=== PATIENT | female | born 1980 | race American Indian/Alaskan Native ===

== ENCOUNTER 2017-01-09 06:15 | Day surgery (SDC) | payer MEDICAID ==
[2017-01-09] MEDS ORDERED: WATER FOR IRRIG STERILE IR ONE (07:27)
--- NOTE | 2017-01-09 07:42 | Anesthesia Consultation ---
Anesthesia Consult and Med Hx Date of service: 01/09/17 - Airway Anesthetic Teeth Evaluation: Good ROM Head & Neck: Adequate Mental/Hyoid Distance: Adequate Mallampati Class: Class II Intubation Access Assessment: Probably Good - Pre-Operative Health Status ASA Pre-Surgery Classification: ASA3 Proposed Anesthetic Plan: MAC - Pulmonary Hx Smoking: Yes (Quit in high school) Hx Sleep Apnea: Yes - Cardiovascular System Hx Hypertension: Yes - Gastrointestinal Hx Gastroesophageal Reflux Disease: Yes - Other Systems Hx Obesity: Yes
--- NOTE | 2017-01-09 07:42 | Anesthesia Day of Surgery ---
Anesthesia Day of Surgery - Day of Surgery Patient Examined: Yes Patient H&P Reviewed: Yes Patient is NPO: Yes
[2017-01-09] MEDS ORDERED: DIPRIVAN 10 MG/ML IV ONE ×2 (07:58)
[2017-01-09] MEDS ORDERED: NACL 0.9% 1000 ML 1,000 ML IV SCH (08:00)
--- NOTE | 2017-01-09 08:04 | Discharge Summary ---
Providers - Providers Date of discharge: 01/09/17 Attending physician: SARAVANAN ASKEW Hospitalization Condition: Good Procedures: egd Disposition: DC- TO HOME OR SELFCARE Core Measure Documentation - Palliative Care Palliative Care/ Comfort Measures: Not Applicable - Core Measures Any of the following diagnoses?: none Exam - Physical Exam Narrative exam: unchanged from pre-op - Constitutional Vitals: Temp Pulse Resp BP Pulse Ox 97.9 F 70 17 101/59 98 01/09/17 07:59 01/09/17 07:59 01/09/17 07:59 01/09/17 07:59 01/09/17 07:59 Plan Activity: no restrictions Weight Bearing Status: Full Weight Bearing Diet: regular
--- NOTE | 2017-01-09 08:05 | Operative Report ---
Operative Report Operative Report: OPERATIVE REPORT - EGD DATE 01/09/17 SURGERY: Upper endoscopy. SURGEON: Richmond Michelle M.D. TALLOW PUMPER: n/a PRE OP DX:dyspepsia POST OP DX:hiatal hernia TYPE OF ANESTHESIA: MAC. ESTIMATED BLOOD LOSS: None. COMPLICATIONS: None. SPECIMENS REMOVED: None. FINDINGS: 1. Small hiatal hernia. 2. Otherwise, normal esophagus, stomach and first portion of duodenum. INDICATIONS:INDICATION FOR PROCEDURE: Patient is a 36-year-old female with a long history of morbid obesity, she has dyspepsia and being evaluated for any pathology that may prohibit her bariatric surgery. She is planned to have a weight loss procedure and is here for preoperative planning EGD. PROCEDURE DETAILS: After consent was reviewed, patient was taken back to the operating room where patient was placed in the left lateral decubitus position and a bite block was placed in the mouth. After a time-out was called, MAC anesthesia was initiated. I then passed the endoscope into her oropharynx, into her esophagus, visualized the entire esophagus, which was all within normal limits. I then visualized the stomach and the first portion of the duodenum and there were no abnormalities I could clearly visualize. I then retroflexed the scope in the stomach and visualized the hiatus and I could see a small hiatal hernia. I then desufflated the stomach and removed the endoscope. Patient tolerated procedure well and was transferred to recovery room in good and stable condition.
[2017-01-09 08:49] VITALS: BP 110/49
--- NOTE | 2017-01-09 09:06 | Post Anesthesia Evaluation ---
- Post Anesthesia Evaluation Patient Participated: Yes Airway Patent: Yes Stable Respiratory Function: Yes Nausea/Vomiting: No Temp > 96.8F: Yes Pain Manageable: Yes Adequeate Hydration: Yes Anesthesia Complications: No Block Receding Appropriately: Not Applicable Patient on Ventilator: No
== END 2017-01-09 06:16 | disposition home or self-care (01) ==
LOC: GIO 06:15
PROVIDERS: ATTEND Surgery
DX: K44.9 Diaphragmatic hernia without obstruction or gangrene (principal); I10 Essential (primary) hypertension; K21.9 Gastro-esophageal reflux disease without esophagitis; G47.33 Obstructive sleep apnea (adult) (pediatric); E28.2 Polycystic ovarian syndrome; E66.01 Morbid (severe) obesity due to excess calories; Z68.44 Body mass index [BMI] 60.0-69.9, adult; Z87.891 Personal history of nicotine dependence; Z88.8 Allergy status to other drugs, medicaments and biological substances; Z91.013 Allergy to seafood; Z98.890 Other specified postprocedural states; Z90.710 Acquired absence of both cervix and uterus; Z79.899 Other long term (current) drug therapy; Z82.49 Family history of ischemic heart disease and other diseases of the circulatory system
CPT/HCPCS: 43235; 81025; J2704

== ENCOUNTER 2017-01-13 07:11 | Inpatient (IN) | payer MEDICAID ==
[2017-01-13] MEDS ORDERED: VERSED IV NR (08:00)
[2017-01-13] MEDS ORDERED: PEPCID IV NR (08:00)
[2017-01-13] MEDS ORDERED: LACTATED RINGERS 1,000 ML IV SCH (08:00)
[2017-01-13] MEDS ORDERED: DEMEROL IV PRN (08:15)
--- NOTE | 2017-01-13 08:22 | Anesthesia Consultation ---
Anesthesia Consult and Med Hx Date of service: 01/13/17 - Airway Anesthetic Teeth Evaluation: Good, Crowns (TOP RIGHT MOLARS) ROM Head & Neck: Adequate Mental/Hyoid Distance: Adequate Mallampati Class: Class II Intubation Access Assessment: Probably Good - Pulmonary Exam CTA: Yes - Cardiac Exam Cardiac Exam: RRR - Pre-Operative Health Status ASA Pre-Surgery Classification: ASA3 Proposed Anesthetic Plan: General - Pulmonary Hx Smoking: Yes (past hx, QUIT 20 YRS AGO) Hx Sleep Apnea: Yes (+CPAP) - Cardiovascular System Hx Hypertension: Yes (x 4-5 yrs) - Central Nervous System Hx Seizures: No CVA: No Hx Psychiatric Problems: No - Gastrointestinal Hx Gastroesophageal Reflux Disease: Yes - Endocrine Hx Renal Disease: No Hx Insulin Dependent Diabetes: No Hx Non-Insulin Dependent Diabetes: No - Hematic Hx Anemia: Yes - Other Systems Hx Cancer: No Hx Obesity: Yes (MORBID)
--- NOTE | 2017-01-13 08:22 | Anesthesia Day of Surgery ---
Anesthesia Day of Surgery - Day of Surgery Patient Examined: Yes Patient H&P Reviewed: Yes Patient is NPO: Yes
[2017-01-13] MEDS ORDERED: TRANSDERM-SCOP TD NR (08:30)
[2017-01-13] MEDS ORDERED: DIPRIVAN 10 MG/ML IV ONE ×2 (08:40→10:49)
[2017-01-13] MEDS ORDERED: SUBLIMAZE ONE (08:40)
[2017-01-13] MEDS ORDERED: DECADRON ONE (08:41)
[2017-01-13] MEDS ORDERED: BLOXIVERZ ONE (08:41)
[2017-01-13] MEDS ORDERED: XYLOCAINE MPF 2% ONE (08:41)
[2017-01-13] MEDS ORDERED: ZEMURON IV ONE (08:41)
[2017-01-13] MEDS ORDERED: ROBINUL ONE ×2 (08:41)
[2017-01-13] MEDS ORDERED: XYLOCAINE 1% 20 mL ONE (08:49)
[2017-01-13] MEDS ORDERED: MARCAINE-EPI 0.5%-1:200,000 INFILTRATI ONE ×2 (08:49→11:12)
[2017-01-13] MEDS ORDERED: ANCEF/STERILE WATER 2 GM/20 ML 2 GM/20 ML SYRINGE IV NR (09:00)
[2017-01-13] MEDS ORDERED: FLAGYL 500 MG/100 ML 500 MG/100 ML BAG IV NR (09:00)
[2017-01-13] MEDS ORDERED: LOVENOX SUB-Q NR (09:00)
[2017-01-13] MEDS ORDERED: MYLICON PO PRN (10:00)
[2017-01-13] MEDS ORDERED: REGLAN IV PRN (10:00)
[2017-01-13] MEDS ORDERED: MORPHINE ONE ×3 (10:41→12:05)
[2017-01-13] MEDS ORDERED: NACL 0.9% IR ONE ×2 (11:12)
[2017-01-13] MEDS ORDERED: XYLOCAINE 1% 20 mL INFILTRATI ONE (11:12)
[2017-01-13] MEDS: TORADOL IV SCH ×2 (12:30→16:55)
[2017-01-13] MEDS: MORPHINE IV PRN ×5 (12:30→19:25)
--- NOTE | 2017-01-13 12:30 | Operative Report ---
Operative Report Operative Report: Operative Report DATE OF PROCEDURE: 01/13/17 PREOPERATIVE DIAGNOSES: Morbid obesity, hiatal hernia POSTOPERATIVE DIAGNOSES: 1.same as pre-op SURGEON: Richmond Michelle M.D. MANAGER CATH LAB: [facility] PROCEDURE: 1. laparoscopic sleeve gastrectomy 2. laparoscopic hiatal hernia repair ANESTHESIA: General. ESTIMATED BLOOD LOSS: <5 mL. COMPLICATIONS: None. SPECIMEN: Partial gastrectomy. FINDINGS: 1. hiatal hernia INDICATION FOR PROCEDURE: Patient is a 36-year-old female with a long history of morbid obesity. 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 She is here today for sleeve gastrectomy. PROCEDURE IN DETAIL: After consent was reviewed, patient was taken back to the operating room, where patient was placed supine on the bed with both arms out. The patient's legs were doubly strapped to the bed. Patient had a foot board in place. Patient had a body warmer placed by anesthesia. Patient was then prepped and draped in normal sterile surgical fashion. After a time-out was called, I made a stab incision in the umbilicus and placed a Veress needle through this incision and insufflated the abdomen to 18 mmHg pressure. I then counted down a handsbreadth below the xiphoid process in the midline and slightly left lateral injected local anesthetic and made about 1.5 cm transverse incision. I then used a 5-mm Optiview trocar to enter into the abdomen. I then placed a 45- degree scope through this port and inspected the abdomen. There was no injury on entry of the abdomen. I then placed two 5-mm ports in the right upper quadrant, one along the anterior axillary line and 1 subxiphoid below the costovertebral angle. I then placed a 15-mm port about a handsbreadth left lateral and inferior to my anterior axillary port. I then placed left upper quadrant port along the anterior axillary line in a similar fashion. I then placed the liver retractor through the subxiphoid port and placed the patient in full reverse Trendelenburg. The right and left crura were skeletonized accentuating a small hiatal hernia. An anterior cruraplasty was perfromed with a figure-of-8 stitch using surgidac suture to reapproximate the crura. The stomach and 2cm of distal esophagus were resting in the abdomen without tension. I then identified the pylorus and then counted off 6cm from the pylorus. I then used a LigaSure cutting device to enter into the lesser sac. At that point and then I took down the short gastrics all the way up to the left waldemar. Then I had anesthesia pass down a 36-St [place] bougie along the lesser curvature of the stomach. I made sure everything else was out of the abdomen except the bougie. I then created my gastric sleeve using a 60-mm laparoscopic stapler. . The sleeve looked good without any twisting or torsion. I then had anesthesia to remove the bougie. Hemostasis was obtained along the staple line. I then used Tiseel along the entirety of the staple line and some on the liver. I then removed liver grasper and took it off the field. I then removed the stomach through the 15-mm port. I then closed that fascia with a #1 PDS in a [id number] fashion using a Maurice-Pao. I then desufflated the abdomen and then removed all port sites. I then closed the incisions with 4-0 Monocryl in subcuticular fashion. I then dressed the wounds with Dermabond. Patient tolerated the procedure well and was transferred to recovery room in good and stable condition.
[2017-01-13] MEDS: APRESOLINE IV PRN (12:45)
[2017-01-13] MEDS ORDERED: NEO SYNEPHRINE/NS Syringe(OR USE) IV ONE (15:00)
[2017-01-13] MEDS: ANCEF/NS 1 GM/50 ML 1 GM/50 ML BAG IV SCH (16:55)
[2017-01-13] MEDS: FLAGYL 500 MG/100 ML 500 MG/100 ML BAG IV SCH (17:33)
[2017-01-13] MEDS: ZOFRAN IV PRN (19:25)
[2017-01-13] MEDS: LACTATED RINGERS 1,000 ML IV SCH (23:34)
[2017-01-14] MEDS: ANCEF/NS 1 GM/50 ML 1 GM/50 ML BAG IV SCH (00:47)
[2017-01-14] MEDS: TORADOL IV SCH ×2 (00:48→08:21)
[2017-01-14] MEDS: MORPHINE IV PRN ×2 (00:49→08:21)
[2017-01-14] MEDS: FLAGYL 500 MG/100 ML 500 MG/100 ML BAG IV SCH ×2 (00:52→08:20)
[2017-01-14] MEDS: ZOFRAN IV PRN (08:22)
[2017-01-14] MEDS: LACTATED RINGERS 1,000 ML IV SCH (08:29)
[2017-01-14] MEDS: APRESOLINE IV PRN (08:46)
[2017-01-14 08:47] VITALS: BP 171/101
[2017-01-14] MEDS ORDERED: LOVENOX SUB-Q SCH (10:00)
[2017-01-14 13:48] LABS: Basophils % (Auto) 0.2 % (0.0-1.8); Hematocrit 34.8 % (30.3-42.9); Hemoglobin 11.2 gm/dl (10.1-14.3); Mean Corpuscular HGB Conc 32 % (30-34); Mean Corpuscular Volume 77 fl (79-97); Platelet Count 205 K/mm3 (140-440); Red Blood Count 4.53 M/mm3 (3.65-5.03); Red Cell Distribution Width 15.8 % (13.2-15.2); White Blood Count 9.8 K/mm3 (4.5-11.0)
[2017-01-14 14:01] LABS: Alanine Aminotransferase 12 units/L (7-56); Albumin 3.3 g/dL (3.9-5); Albumin/Globulin Ratio 0.9 %; Alkaline Phosphatase 42 units/L (35-129); Anion Gap 18 mmol/L; BUN/Creatinine Ratio 15.71; Blood Urea Nitrogen 11 mg/dL (7-17); Calcium 8.2 mg/dL (8.4-10.2); Carbon Dioxide 22 mmol/L (22-30); Chloride 103.4 mmol/L (98-107); Glucose 88 mg/dL (65-100); Potassium 3.9 mmol/L (3.6-5.0); Sodium 139 mmol/L (137-145); Total Protein 6.9 g/dL (6.3-8.2)
[2017-01-14 14:04] LABS: Mean Corpuscular Hemoglobin 25 pg (28-32)
--- NOTE | 2017-01-14 17:20 | Discharge Summary ---
Providers - Providers Date of Admission: 01/13/17 07:11 Date of discharge: 01/14/17 Attending physician: SARAVANAN ASKEW Hospitalization Condition: Good Hospital course: 36 F admitted to hospital for lap sleeve gastrectomy and hiatal hernia repair. She underwent surgery without complications.She did well post op. On POD 1. she tolerated liquids and her pain was controlled. Prior to discharge she denies vomiting. Disposition: DC-01 TO HOME OR SELFCARE Core Measure Documentation - Palliative Care Palliative Care/ Comfort Measures: Not Applicable - Core Measures Any of the following diagnoses?: none Exam - Physical Exam Narrative exam: Gen: A+Ox3 CARdio: RRR Lungs CTA BL Abd: soft obese, tender at incision sites, incision sites cdi. ext: no c/c/e - Constitutional Vitals: Temp Pulse Resp BP Pulse Ox 98.1 F 54 L 20 171/101 96 01/14/17 08:00 01/14/17 08:46 01/14/17 09:30 01/14/17 08:46 01/14/17 07:51 Plan Activity: other (No lifting >15lbs for 6 weeks ) Diet: clear liquids Wound: other (may shower, no soaking in the tub) Follow up with: DR VIJAY [Other] - 7 Days
== END 2017-01-14 16:10 | disposition home or self-care (01) | DRG 327 ==
LOC: 3A 07:11 → 2B-SURG 16:28
PROVIDERS: ADMIT Surgery; ATTEND Surgery
PROC: 0DB64Z3 Excision of Stomach, Percutaneous Endoscopic Approach, Vertical (ICD-10-PCS; principal; 2017-01-13)
PROC: 0BQS4ZZ (ICD-10-PCS; 2017-01-13)
PROC: 0BQR4ZZ (ICD-10-PCS; 2017-01-13)
DX: K44.9 Diaphragmatic hernia without obstruction or gangrene (principal); Z68.44 Body mass index [BMI] 60.0-69.9, adult; E66.01 Morbid (severe) obesity due to excess calories; I10 Essential (primary) hypertension; Z91.013 Allergy to seafood; K30 Functional dyspepsia; Z88.8 Allergy status to other drugs, medicaments and biological substances
CPT/HCPCS: 36415; 80053; 85025; 88307; 94760; A4217; C9250; J0360; J0690; J1100; J1650; J1885; J2250; J2270; J2370; J2405; J2704; J2710; J2765; J3010; J7120